=== PATIENT | female | born 2000 | race Caucasian/White ===

== ENCOUNTER 2023-01-26 01:18 | Emergency (ER) | payer MEDICAID ==
[~2023-01-26] VITALS: Ht 160 cm; Wt 72.7 kg
[2023-01-26 04:50] VITALS: BP 122/78
== END 2023-01-26 05:05 | disposition home or self-care (01) ==
LOC: EMS 01:18
DX: F41.9 Anxiety disorder, unspecified (principal); Z90.49 Acquired absence of other specified parts of digestive tract; Z90.89 Acquired absence of other organs
CPT/HCPCS: 71045; 93005; 99283